=== PATIENT | female | born 1990 | race Two or more races ===

== ENCOUNTER 2024-04-08 12:06 | Emergency (ER) | payer OTHER ==
[~2024-04-08] VITALS: Ht 162.6 cm; Wt 67.6 kg
[2024-04-08] MEDS ORDERED: PRENATA CHEWAB1 EACH PO (13:22)
[2024-04-08 15:27] LABS: HEMOGLOBIN 12.5 g/dL (12.0-15.00); MEAN CELL VOLUME 86.6 fL (80.00-100.00); MEAN CORPUSCULAR HEMOGLOBIN 28.5 pg (27.00-32.0); MEAN CORPUSCULAR HGB CONC 32.8 g/dl (32.0-36.0); PLATELET COUNT 279 K/uL (150-450); RED BLOOD COUNT 4.39 M/uL (4.00-6.00); RED CELL DISTRIBUTION WIDTH 13.5 % (11.5-14.5)
[2024-04-08 15:41] LABS: CALCIUM 9.4 mg/dL (8.5-10.1); CREATININE SERUM 0.53 mg/dL (0.55-1.02); GFR 130.53; POTASSIUM 3.38 mEq/L (3.5-5.1)
[2024-04-08 16:15] LABS: PH,URINE 5.5 (5.0-8.0); URINE APPEARANCE Cloudy; URINE BILIRRUBIN Negative (NEGATIVE); URINE BLOOD Negative; URINE COLOR Yellow; URINE GLUCOSE Negative (NEGATIVE); URINE KETONE Negative (NEGATIVE); URINE LEUKOCYTE Moderate; URINE NITRATE Negative; URINE PROTEIN Negative (NEGATIVE); URINE UROBILINOGEN 0.2 E.U./dl
[2024-04-08 16:19] LABS: URINE BACTERIA 4183.3 uL (0.0-1933); URINE EPITHELIAL CELLS 79.3 uL (0.0-38.8); URINE RBC 2.7 uL (0.0-20.8); URINE WBC 224.9 uL (0.0-23.2)
[2024-04-08] MEDS ORDERED: CEFTRIAXONE SODIUM 1,000 MG VIAL IM STA (16:58)
[2024-04-08] MEDS ORDERED: CEFTRIAXONE SODIUM 1,000 MG VIAL ONE (17:11)
[2024-04-08] MEDS ORDERED: LIDOCAINE HCL 1% 10ML VIAL ONE (17:11)
== END 2024-04-08 18:24 | disposition home or self-care (01) ==
LOC: ER 12:09
PROVIDERS: General Practice
DX: O23.40 Unspecified infection of urinary tract in pregnancy, unspecified trimester (principal); Z3A.08 8 weeks gestation of pregnancy

== ENCOUNTER → 2024-04-30 08:32 | Outpatient (CLI) | payer OTHER ==
[~2024-04-30 08:32] MED LIST: PRENATA CHEWAB1 EACH PO
[2024-04-30 10:22] LABS: PH,URINE 6.5 (5.0-8.0); URINE APPEARANCE Clear; URINE BILIRRUBIN Negative (NEGATIVE); URINE BLOOD Negative; URINE COLOR Yellow; URINE GLUCOSE Negative (NEGATIVE); URINE KETONE Negative (NEGATIVE); URINE LEUKOCYTE Trace; URINE NITRATE Negative; URINE PROTEIN Negative (NEGATIVE)
[2024-04-30 10:23] LABS: URINE BACTERIA 3420.8 uL (0.0-1933); URINE EPITHELIAL CELLS 89.6 uL (0.0-38.8); URINE RBC 4.5 uL (0.0-20.8); URINE WBC 29.7 uL (0.0-23.2)
[2024-04-30 10:30] LABS: HEMATOCRIT 35.3 % (36.0-45.00); HEMOGLOBIN 11.7 g/dL (12.0-15.00); MEAN CELL VOLUME 87.9 fL (80.00-100.00); MEAN CORPUSCULAR HEMOGLOBIN 29.2 pg (27.00-32.0); MEAN CORPUSCULAR HGB CONC 33.2 g/dl (32.0-36.0); PLATELET COUNT 266 K/uL (150-450); RED BLOOD COUNT 4.01 M/uL (4.00-6.00); RED CELL DISTRIBUTION WIDTH 13.9 % (11.5-14.5)
[2024-04-30 10:39] LABS: URINE CAST 0.14 uL (0.0-1.40)
[2024-04-30 11:15] LABS: ALBUMIN 3.5 gm/dL (3.4-5.0); BILIRUBIN TOTAL 0.33 mg/dL (0.3-1.2); CALCIUM 9.4 mg/dL (8.5-10.1); CREATININE SERUM 0.46 mg/dL (0.55-1.02); GFR 153.7; GLOBULINA 3.7 G/DL (2.4-3.5); POTASSIUM 4.29 mEq/L (3.5-5.1); TOTAL PROTEIN 7.2 gm/dL (6.4-8.2); TSH 1.82 uIU/mL (0.358-3.74)
[2024-04-30 14:29] LABS: RH POSITIVE
[2024-05-02 15:26] LABS: RAPID PLASMA REAGIN NONREACTIVE BY RPR (NONREACTIVE)
== END | disposition home or self-care (01) ==
LOC: LAB 08:32
PROVIDERS: ATTEND Obstetrics & Gynecology
DX: D64.9 Anemia, unspecified (principal); N39.0 Urinary tract infection, site not specified; B17.9 Acute viral hepatitis, unspecified; Z72.51 High risk heterosexual behavior; E13.9 Other specified diabetes mellitus without complications; E03.9 Hypothyroidism, unspecified; E78.00 Pure hypercholesterolemia, unspecified

== ENCOUNTER 2024-05-02 08:41 | Outpatient (CLI) | payer OTHER | END 2024-05-02 08:42 | disposition home or self-care (01) | LOC: PRENATAL 08:41 | PROVIDERS: ATTEND Obstetrics & Gynecology Maternal & Fetal Medicine | DX: O36.80X0 Pregnancy with inconclusive fetal viability, not applicable or unspecified (principal); Z36.82 Encounter for antenatal screening for nuchal translucency; O09.529 Supervision of elderly multigravida, unspecified trimester; Z14.8 Genetic carrier of other disease; Z3A.12 12 weeks gestation of pregnancy ==

== ENCOUNTER 2024-05-25 18:23 | Emergency (ER) | payer OTHER ==
[~2024-05-25] VITALS: Ht 162.6 cm; Wt 68.0 kg
[2024-05-25] MEDS ORDERED: FOLIC ACID20 MG (18:41)
== END 2024-05-25 19:55 | disposition home or self-care (01) ==
LOC: ER 18:25
DX: O98.512 Other viral diseases complicating pregnancy, second trimester (principal); Z3A.14 14 weeks gestation of pregnancy; J06.9 Acute upper respiratory infection, unspecified

== ENCOUNTER 2024-06-27 08:09 | Outpatient (CLI) | payer OTHER ==
[~2024-06-27 08:09] MED LIST changes: +FOLIC ACID20 MG
== END 2024-06-27 08:10 | disposition home or self-care (01) ==
LOC: PRENATAL 08:09
PROVIDERS: ATTEND Obstetrics & Gynecology Maternal & Fetal Medicine
DX: O44.00 Complete placenta previa NOS or without hemorrhage, unspecified trimester (principal); O09.529 Supervision of elderly multigravida, unspecified trimester; Z3A.20 20 weeks gestation of pregnancy

== ENCOUNTER → 2024-08-25 10:07 | Outpatient (CLI) | payer OTHER ==
[2024-08-25 11:35] LABS: PH,URINE 6.5 (5.0-8.0); URINE APPEARANCE Cloudy; URINE BILIRRUBIN Negative (NEGATIVE); URINE BLOOD Negative; URINE COLOR Yellow; URINE GLUCOSE Negative (NEGATIVE); URINE KETONE Negative (NEGATIVE); URINE LEUKOCYTE Small; URINE NITRATE Negative; URINE PROTEIN Negative (NEGATIVE)
[2024-08-25 11:36] LABS: URINE BACTERIA 3863.9 uL (0.0-1933); URINE EPITHELIAL CELLS 102.7 uL (0.0-38.8); URINE RBC 6.7 uL (0.0-20.8); URINE WBC 28.9 uL (0.0-23.2)
[2024-08-25 11:37] LABS: BASO % 0.4 % (0.1-1.2); EOS # 0.08 (0.04-0.54); HEMATOCRIT 32.3 % (34.1-44.9); HEMOGLOBIN 10.7 g/dL (11.2-15.7); LYMPH # 1.53 (1.18-3.74); LYMPH % 18.3 % (19.3-53.1); MEAN CORPUSCULAR HEMOGLOBIN 29.3 pg (25.6-32.2); MONO # 0.74 (0.24-0.82); MONO % 8.8 % (4.7-12.5); NEUT # 5.68 (1.56-6.13); NEUT % 67.8 % (34.0-71.1); RED BLOOD COUNT 3.65 M/uL (3.93-5.22); RED CELL DISTRIBUTION WIDTH 14.4 % (11.6-14.4)
[2024-08-25 12:01] LABS: ALBUMIN 2.9 gm/dL (3.4-5.0); BILIRUBIN TOTAL 0.39 mg/dL (0.3-1.2); CALCIUM 8.8 mg/dL (8.5-10.1); CREATININE SERUM 0.41 mg/dL (0.55-1.02); GFR 175.53; GLOBULINA 3.6 G/DL (2.4-3.5); POTASSIUM 4.02 mEq/L (3.5-5.1); TOTAL PROTEIN 6.5 gm/dL (6.4-8.2); TSH 2.04 uIU/mL (0.358-3.74)
[2024-08-25 12:22] LABS: URINE CAST 0.58 uL (0.0-1.40)
[2024-08-25 12:23] LABS: URINE YEAST FEW /hpf
[2024-08-25 13:15] LABS: PLATELET COUNT 204 K/uL (163-369)
[2024-08-27 05:07] LABS: hav igm Negative (Negative); hcv Non Reactive (Non Reactive); hep b c Negative (Negative); hep b s ag Negative (Negative)
== END | disposition home or self-care (01) ==
LOC: LAB 10:07
PROVIDERS: ATTEND Obstetrics & Gynecology
DX: D64.9 Anemia, unspecified (principal); N39.0 Urinary tract infection, site not specified; Z72.51 High risk heterosexual behavior; E13.9 Other specified diabetes mellitus without complications; E03.9 Hypothyroidism, unspecified; E78.00 Pure hypercholesterolemia, unspecified

== ENCOUNTER → 2024-08-31 08:39 | Outpatient (CLI) | payer OTHER ==
[2024-08-31 13:13] LABS: ALT/SGPT 63 U/L (12-78); AST/SGOT 32 U/L (15-37)
== END | disposition home or self-care (01) ==
LOC: LAB 08:39
PROVIDERS: ATTEND Obstetrics & Gynecology
DX: R74.01 Elevation of levels of liver transaminase levels (principal); O24.419 Gestational diabetes mellitus in pregnancy, unspecified control

== ENCOUNTER → 2024-09-23 10:36 | Outpatient (CLI) | payer OTHER | END | disposition home or self-care (01) | LOC: PRENATAL 10:36 | PROVIDERS: ATTEND Obstetrics & Gynecology Maternal & Fetal Medicine | DX: O26.849 Uterine size-date discrepancy, unspecified trimester (principal); O36.8199 Decreased fetal movements, unspecified trimester, other fetus; O09.529 Supervision of elderly multigravida, unspecified trimester; Z3A.33 33 weeks gestation of pregnancy ==

== ENCOUNTER 2024-10-28 17:01 | Outpatient (CLI) | payer OTHER ==
[~2024-10-28] VITALS: Ht 162.6 cm; Wt 78.9 kg
[2024-10-28 16:00] VITALS: BP 109/66
[2024-10-28] MEDS ORDERED: BISACODYL 10 MG/SUPP.RECT SUPP.RECT RECTAL ONE (17:30)
[2024-10-28] MEDS ORDERED: RINGERS SOLUTION,LACTATED 1,000 ML IV SCH (17:30)
[2024-10-28 17:36] LABS: BASO % 0.8 % (0.1-1.2); EOS # 0.07 (0.04-0.54); EOS % 0.8 % (0.7-7.0); LYMPH # 1.57 (1.18-3.74); LYMPH % 18.3 % (19.3-53.1); MEAN PLATELET VOLUME 11.30 fl (9.4-12.4); MONO # 0.98 (0.24-0.82); MONO % 11.4 % (4.7-12.5); NEUT # 5.51 (1.56-6.13); NEUT % 64.3 % (34.0-71.1); RED CELL DISTRIBUTION WIDTH 14.7 % (11.6-14.4)
[2024-10-28 17:38] LABS: URINE APPEARANCE Cloudy; URINE BILIRRUBIN Negative (NEGATIVE); URINE BLOOD Negative; URINE COLOR Yellow; URINE GLUCOSE Negative (NEGATIVE); URINE KETONE Negative (NEGATIVE); URINE LEUKOCYTE Moderate; URINE NITRATE Negative; URINE PROTEIN Negative (NEGATIVE); URINE UROBILINOGEN 1.0 E.U./dl
[2024-10-28 17:40] LABS: URINE BACTERIA 112.7 uL (0.0-1933); URINE EPITHELIAL CELLS 45.0 uL (0.0-38.8); URINE RBC 43.5 uL (0.0-20.8); URINE WBC 39.9 uL (0.0-23.2)
[2024-10-28 18:00] LABS: TYPE CELLS SQUAMOUS; URINE CAST 0.00 uL (0.0-1.40); URINE MUCUS SCANT
[2024-10-28] MEDS ORDERED: VALACYCLOVIR500 MG PO (22:04)
[2024-10-28] MEDS ORDERED: TERCONAZOLE20 GM VAG (22:05)
[2024-10-28 23:11] VITALS: BP 112/54
[2024-10-29 00:50] VITALS: BP 112/54
== END 2024-10-29 00:50 | disposition home or self-care (01) ==
LOC: OBS/DEL 17:01
PROVIDERS: Obstetrics & Gynecology; ATTEND Obstetrics & Gynecology
DX: O26.893 Other specified pregnancy related conditions, third trimester (principal); R10.2 Pelvic and perineal pain; Z3A.37 37 weeks gestation of pregnancy

== ENCOUNTER 2024-11-01 14:15 | Inpatient (IN) | payer OTHER ==
[~2024-11-01] VITALS: Ht 162.6 cm; Wt 3.2 kg
[~2024-11-01 14:15] MED LIST changes: +TERCONAZOLE20 GM VAG; +VALACYCLOVIR500 MG PO
[2024-11-11] MEDS ORDERED: OXYTOCIN 500 ML IV SCH (08:45)
[2024-11-11] MEDS ORDERED: MORPHINE SULFATE 4 MG/ML CARTRIDGE IV ONE (08:45)
[2024-11-11] MEDS ORDERED: OXYTOCIN 10 UNITS/ML VIAL IV ONE (14:00)
[2024-11-11] MEDS ORDERED: ERYTHROMYCIN BASE OPHT 1GM EACH TUBE OP ONE (14:00)
[2024-11-11] MEDS ORDERED: MORPHINE SULFATE 4 MG/ML VIAL IV ONE ×2 (15:30→15:40)
[2024-11-11] MEDS ORDERED: MORPHINE SULFATE 4 MG/ML CARTRIDGE IV SCH (17:00)
[2024-11-11 18:15] VITALS: BP 112/67
[2024-11-11 20:00] VITALS: BP 130/76
[2024-11-11] MEDS ORDERED: KETOROLAC TROMETHAMINE 60 MG VIAL IM ONE (21:00)
[2024-11-11 21:17] LABS: BASO % 0.2 % (0.1-1.2); EOS # 0.01 (0.04-0.54); EOS % 0.1 % (0.7-7.0); LYMPH # 0.74 (1.18-3.74); LYMPH % 6.1 % (19.3-53.1); MEAN PLATELET VOLUME 11.00 fl (9.4-12.4); MONO # 0.74 (0.24-0.82); MONO % 6.1 % (4.7-12.5); NEUT # 10.30 (1.56-6.13); NEUT % 85.3 % (34.0-71.1); RED CELL DISTRIBUTION WIDTH 15.0 % (11.6-14.4)
[2024-11-11 23:45] VITALS: BP 130/76
[2024-11-12 03:00] VITALS: BP 104/67
[2024-11-12] MEDS ORDERED: OxyCODONE HCL 5 MG TABLET (ROXICODONE) PO SCH (05:00)
[2024-11-12 08:00] VITALS: BP 117/69
[2024-11-12] MEDS ORDERED: PNV,CALCIUM 72/IRON/FOLIC ACID 1 TAB TABLET PO SCH (08:00)
[2024-11-12] MEDS ORDERED: SIMETHICONE 125 MG CAPSULE PO SCH (08:00)
[2024-11-12] MEDS ORDERED: DOCUSATE SODIUM 100MG CAP PO SCH (08:00)
[2024-11-12 16:30] VITALS: BP 102/68
[2024-11-12 21:00] VITALS: BP 106/65
[2024-11-13 01:53] VITALS: BP 96/60
[2024-11-13 08:39] VITALS: BP 103/69
[2024-11-13] MEDS ORDERED: IBUPROFEN800 MG PO (09:31)
[2024-11-13] MEDS ORDERED: MINERAL OIL 30 ML BLIST.PACK PO NR (12:30)
[2024-11-13] MEDS ORDERED: MAGNESIUM HYDROXIDE 30 ML BLIST.PACK PO NR (12:30)
[2024-11-13 16:00] VITALS: BP 109/73
[2024-11-14 00:19] VITALS: BP 99/66
[2024-11-14 08:00] VITALS: BP 108/73
== END 2024-11-14 10:35 | disposition home or self-care (01) | DRG 788 ==
LOC: LDR 11-11 08:10 → O/R 11-11 15:09 → OB/GYN 11-11 18:04
PROVIDERS: ADMIT Obstetrics & Gynecology; ATTEND Obstetrics & Gynecology
PROC: 4A1HXCZ Monitoring of Products of Conception, Cardiac Rate, External Approach (ICD-10-PCS; 2024-11-11)
PROC: 10D00Z1 Extraction of Products of Conception, Low, Open Approach (ICD-10-PCS; principal; 2024-11-11 15:00)
DX: O34.211 Maternal care for low transverse scar from previous cesarean delivery (principal); O36.8130 Decreased fetal movements, third trimester, not applicable or unspecified; Z3A.39 39 weeks gestation of pregnancy; Z37.0 Single live birth

== ENCOUNTER 2024-11-10 20:35 | Outpatient (CLI) | payer OTHER ==
[2024-11-10 19:16] VITALS: BP 112/73
[2024-11-10 21:15] LABS: BASO % 0.5 % (0.1-1.2); EOS # 0.12 (0.04-0.54); EOS % 1.6 % (0.7-7.0); LYMPH # 1.66 (1.18-3.74); LYMPH % 22.5 % (19.3-53.1); MEAN PLATELET VOLUME 11.00 fl (9.4-12.4); MONO # 0.79 (0.24-0.82); MONO % 10.7 % (4.7-12.5); NEUT # 4.39 (1.56-6.13); NEUT % 59.6 % (34.0-71.1); RED CELL DISTRIBUTION WIDTH 15.2 % (11.6-14.4)
[2024-11-10] MEDS ORDERED: RINGERS SOLUTION,LACTATED 1,000 ML IV SCH (21:15)
[2024-11-10 21:39] LABS: ALT/SGPT 21.0 U/L (12-78); AST/SGOT 18.0 U/L (15-37); BILIRUBIN TOTAL 0.36 mg/dL (0.3-1.2); BUN CREA RATIO 20.0 (7.0-25.0); CREATININE SERUM 0.45 mg/dL (0.55-1.02); GFR 157.65; GLOBULINA 3.4 G/DL (2.4-3.5); GLUCOSE FASTING 83.0 mg/dL (65-100); OSMOLALITY SERUM 275.0 MOSM/KG (275-295)
[2024-11-10 21:45] LABS: NEUTROPHILS MAN 64.0 %
[2024-11-10 21:46] LABS: BAND MAN 5.0 %; BASOPHIL MAN 1.0 %; EOSINOPHIL MAN 1.0 %; LYMPHOCYTE MAN 15.0 %; METAMYELOCYTE 5.0 %; MONOCYTE MAN 5.0 %; MYELOCYTE 4.0 %
[2024-11-10 23:10] LABS: URINE APPEARANCE Clear; URINE BILIRRUBIN Negative (NEGATIVE); URINE BLOOD Negative; URINE COLOR Yellow; URINE GLUCOSE Negative (NEGATIVE); URINE KETONE Negative (NEGATIVE); URINE LEUKOCYTE Negative; URINE NITRATE Negative; URINE PROTEIN Negative (NEGATIVE); URINE UROBILINOGEN 1.0 E.U./dl
[2024-11-10 23:14] LABS: URINE BACTERIA 39.5 uL (0.0-1933); URINE EPITHELIAL CELLS 5.2 uL (0.0-38.8)
[2024-11-10 23:16] LABS: URINE CAST 0.00 uL (0.0-1.40); URINE RBC 0.0 uL (0.0-20.8); URINE WBC 0.9 uL (0.0-23.2)
[2024-11-10 23:30] LABS: INR 0.96
[2024-11-11 00:06] VITALS: BP 94/57
[2024-11-11 03:37] VITALS: BP 104/63
[2024-11-11 07:36] VITALS: BP 103/67
== END 2024-11-11 08:09 | disposition still patient (30) ==
LOC: OBS/DEL 20:35
PROVIDERS: ATTEND Obstetrics & Gynecology
DX: O26.893 Other specified pregnancy related conditions, third trimester (principal)